=== PATIENT | female | born 1960 | race Caucasian/White ===

== ENCOUNTER → 2016-08-30 14:17 | Outpatient (CLI) | payer MEDICAID | END | disposition home or self-care (01) | LOC: D.MAMMO 08-29 10:30 | DX: Z12.39 Encounter for other screening for malignant neoplasm of breast (principal) ==

== ENCOUNTER 2018-02-13 20:41 | Emergency (ER) | payer MEDICAID ==
[~2018-02-13] VITALS: Ht 154.9 cm; Wt 94.3 kg
[2018-02-13 21:54] LABS: BASOPHILS 0.2 % (0-2); EOSINOPHILS 2.2 % (0-7); HEMATOCRIT 39.6 % (36.0-48.0); HEMOGLOBIN 13.3 g/dL (12-16); IMMATURE GRANULOCYTES 0.3 % (0-5); LYMPHOCYTES 37.3 % (15-50); MCH 28.8 pg (26.0-34.0); MCHC 33.6 g/dL (31.0-37.0); MCV 85.7 fL (80.0-100.0); MEAN PLATELET VOLUME 9.9 fL (7.4-10.4); MONOCYTES 6.2 % (2-11); NEUTROPHILS 53.8 % (40-80); PLATELET COUNT 218 10x3/uL (130-400); RBC 4.62 10x6/uL (4.00-5.40); RDW 13.5 % (11.5-14.5)
[2018-02-13 22:10] LABS: APTT 25.8 SECONDS (22.8-39.4); INR 0.99 (0.85-1.17); PROTIME 12.7 SECONDS (11.6-15.0)
[2018-02-13 22:11] LABS: D-DIMER-QUANTITATIVE < 0.27 ug/mLFEU (0.20-0.54)
[2018-02-13 22:16] LABS: ALBUMIN 3.5 g/dL (3.4-5.0); ALKALINE PHOSPHATASE 80 U/L (46-116); ALT (SGPT) 19 U/L (10-68); BILIRUBIN - TOTAL 0.44 mg/dL (0.2-1.3); CALC OSMOLALITY 286 mosm/kg (275-300); CALCIUM 8.5 mg/dL (8.5-10.1); CARBON DIOXIDE 29.3 mmol/L (21.0-32.0); CHLORIDE - SERUM 106 mmol/L (98-107); CREATININE - SERUM 0.8 mg/dL (0.6-1.3); GLUCOSE 130 mg/dL (74-106); POTASSIUM - SERUM 3.6 mmol/L (3.5-5.1); PROTEIN - SERUM 7.2 g/dL (6.4-8.2); SODIUM 143 mmol/L (136-145); UREA NITROGEN 12 mg/dL (7-18); eGFR NON AFRICAN AMERICAN 79 mL/min (90-120)
[2018-02-13 22:28] LABS: CKMB 0.2 U/L (0.0-3.6); CREATINE KINASE 57 UL (21-215); PRO BNP 111 pg/mL (0-125); TROPONIN-I < 0.017 ng/mL (0.000-0.060)
== END 2018-02-14 01:33 | disposition home or self-care (01) ==
LOC: D.ER 20:41
PROVIDERS: Family Medicine
DX: R07.9 Chest pain, unspecified (principal); E11.9 Type 2 diabetes mellitus without complications; I10 Essential (primary) hypertension

== ENCOUNTER → 2018-03-06 09:43 | Outpatient (CLI) | payer MEDICAID ==
--- NOTE | ~2018-03-06 | ST ---
PATIENT:KAMINI JULIEN MEDICAL RECORD: [id number] SEX: F LOCATION:[facility] ORDER #: ADMISSION DATE: 03/06/18 AGE OF PATIENT: 57 REFERRING PHYSICIAN: INTERPRETING PHYSICIAN: JUAN MANUEL TIRADO MD DATE OF SERVICE: 03/06/2018 PROCEDURE: Nuclear stress test. INDICATION: Chest pain of unknown etiology. She was exercised on standard Lexiscan protocol with 30.4 mCi of sestamibi injected at peak stress, 12.4 mCi injected previously for rest images. FINDINGS: Gated SPECT reveals a preserved ejection fraction at 73% with good wall motioning and thickening and brightening throughout all segments. SPECT imaging: Sestamibi was used as a myocardial fusion agent. There is homogeneous uptake at all segments at rest and stress with no evidence of inducible ischemia or previous infarction. OVERALL IMPRESSION: 1. This is a normal nuclear stress test with no evidence of inducible ischemia or previous infarction. 2. Gated SPECT reveals a preserved ejection fraction greater than 70%. In this patient with ongoing symptomatology, the current scan does not suggest the presence of hemodynamically significant coronary artery disease. We would evaluate noncardiac etiology of chest pain. TRANSINT:[id number] Voice Confirmation ID: [id number] DOCUMENT ID: [id number] JUAN MANUEL TIARDO MD at 0924 CC: [id number] DICTATION DATE: 03/06/181910 NATIONAL SECRETARY: 03/07/18 1010 [facility] CLI 03/06/18 [facility] [address] [place] [address]
== END | disposition home or self-care (01) ==
LOC: D.NM 09:43
DX: I20.0 Unstable angina (principal); R06.02 Shortness of breath

== ENCOUNTER 2019-04-08 21:12 | Emergency (ER) | payer SELFPAY ==
[~2019-04-08] VITALS: Ht 154.9 cm; Wt 94.5 kg
[2019-04-08 21:26] VITALS: Ht 154.9 cm; Wt 94.5 kg
[2019-04-08] MEDS ORDERED: UNK BP MED (21:28)
[2019-04-08] MEDS ORDERED: [UNRECOGNIZED DRUG - REMARK] (21:29)
[2019-04-08] MEDS ORDERED: [UNRECOGNIZED DRUG - REMARK] (21:29)
[2019-04-08] MEDS ORDERED: [UNRECOGNIZED DRUG - REMARK] (21:29)
[2019-04-08 22:35] LABS: BASOPHILS 0.4 % (0-2); EOSINOPHILS 3.1 % (0-7); HEMATOCRIT 42.4 % (36.0-48.0); HEMOGLOBIN 13.7 g/dL (12-16); IMMATURE GRANULOCYTES 0.4 % (0-5); LYMPHOCYTES 33.5 % (15-50); MCH 28.2 pg (26.0-34.0); MCHC 32.3 g/dL (31.0-37.0); MCV 87.2 fL (80.0-100.0); NEUTROPHILS 57.6 % (40-80); PLATELET COUNT 212 10x3/uL (130-400); RBC 4.86 10x6/uL (4.00-5.40); RDW 14.1 % (11.5-14.5); WBC 7.9 10x3/uL (4.8-10.8)
[2019-04-08 22:48] LABS: CALC OSMOLALITY 293 mosm/kg (275-300); CARBON DIOXIDE 33.6 mmol/L (21.0-32.0); CHLORIDE - SERUM 103 mmol/L (98-107); CREATININE - SERUM 0.8 mg/dL (0.6-1.3); POTASSIUM - SERUM 3.6 mmol/L (3.5-5.1); SODIUM 142 mmol/L (136-145); UREA NITROGEN 11 mg/dL (7-18); eGFR NON AFRICAN AMERICAN 78 mL/min (90-120)
[2019-04-08 22:50] LABS: GLUCOSE 307 mg/dL (74-106)
[2019-04-08 22:54] LABS: ALBUMIN 3.4 g/dL (3.4-5.0); ALKALINE PHOSPHATASE 104 U/L (46-116); ALT (SGPT) 23 U/L (10-68); BILIRUBIN - TOTAL 0.54 mg/dL (0.2-1.3); PROTEIN - SERUM 7.3 g/dL (6.4-8.2)
[2019-04-08] MEDS ORDERED: LISINOPRIL10 MG PO (23:07)
[2019-04-08] MEDS ORDERED: GLUCOPHAGE500 MG PO (23:07)
[2019-04-08 23:40] VITALS: BP 162/94
== END 2019-04-08 23:40 | disposition home or self-care (01) ==
LOC: D.ER 21:12
PROVIDERS: Family Medicine
DX: I10 Essential (primary) hypertension (principal); E11.9 Type 2 diabetes mellitus without complications; Z79.84 Long term (current) use of oral hypoglycemic drugs; R51 Headache